=== PATIENT | female | born 2000 | race Caucasian/White ===

== ENCOUNTER 2025-03-11 14:29 | Emergency (ER) | payer OTHER, SELFPAY ==
[2025-03-11 14:35] VITALS: BP 132/70; PULSE 94; RESP 17; TEMP 36.6; O2SAT 99
--- OUTSIDE RECORDS SUMMARY | 2025-03-11 14:43 | XMS_ITS | Clinical Summary ---
Author Organization [facility] Kamiah Professional Maddock Address [address] [place] [id number] Care Team Providers Care Chemist Food Name Role Phone Sherita Sanchez NP Primary Care Provider [phone] Allergies No known active allergies Medications ibuprofen (ADVIL,MOTRIN) 200 mg tab/cap Take 200 mg by mouth every 6 (six) hours as needed for pain Active triamcinolone (NASACORT) 55 mcg nasal inhaler 2 sprays daily 05/26/2022 Active Active Problems No known active problems Immunizations Immunization Administration Dates Next Due DTaP 5 Pertussis 05/05/2005, 2,2000,2000 ,2000 HPV, Quadrivalent 05/20/2013,10/25/2011 Hep A, Pediatric 04/23/2008,01/16/2007 Hep B, Adolescent or Pediatric 02/05/2001,2000,2000 Hib (PRP-T) 07/02/2001,2000,2000 IPV 05/05/2005,09/24/2001,2000 ,2000 MMR 05/05/2005,07/02/2001 Meningococcal Conjugate (Menveo) 10/25/2011 Meningococcal MCV4P (Menactra) 01/10/2017 Pneumococcal Conjugate PCV 13 2000, 001,2000 Tdap 10/25/2011 Varicella 04/23/2008,05/14/2001 Surgical History Surgery Date Site/Laterality Comments TONSILLECTOMY Bilateral Medical History Medical History Date Comments Hx Other Medical tubes in ear Anxiety Depression Family History Medical History Relation Name Comments Heart disease Father christy lbake Heart disease Maternal Grandmother Hypertension Maternal Grandmother Stroke Maternal Grandmother Breast cancer Other Other Other Family history of heart problem; Relation Name Status Comments Father christy blake Maternal Grandmother Other Social History Tobacco Use Types Packs/Day Years Used Date Smoking Tobacco: Every Day Vaping Smokeless Tobacco: Never Tobacco Cessation:Ready to Q uit: Not Asked; Counseling Given: Not Answered Alcohol Use Standard Drinks/Week Comments No 0 (1 standard drink = 0.6 oz pur e alcohol) PHQ-2 Answer Date Recorded PHQ-2 Total Score (If total score is 3 or more points, staff should administer the PHQ-9) 2 06/14/2022 Comments No Sex and Gender Information Value Date Recorded Sex Assigned at Not on file Legal Sex Female 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 Gender Identity Not on file Sexual Orientation Not on file Last Filed Vital Signs Vital Sign Reading Time Taken Comments Blood Pressure 112/58 10/18/2023 9:20 AM CDT Pulse 85 10/18/2023 9:20 AM CDT Temperature 36.9 C (98.4 F) 10/18/2023 9:20 AM CDT Respiratory Rate 18 10/18/2023 9:20 AM CDT Oxygen Saturation 96% 10/18/2023 9:20 AM CDT Inhaled Oxygen Concentration - - Weight 54.4 kg (120 lb) 10/18/2023 9:20 AM CDT Height 157.5 cm (5' 2) 10/18/2023 9:20 AM CDT Body Mass Index 21.95 10/18/2023 9:20 AM CDT Plan of Treatment Health Maintenance Due Date Last Done Comments Cervical Cancer Screening 2000 Chlamydia and Gonorrhea (GC/ CT) Screening 2000 Hepatitis C Screening 2000 Pneumococcal vaccine <65 (1 of 1 - PPSV23, PCV20, or PCV21) 2006 2000, 2000, 2000 Regular Well Visit/Exam 18-64 2018 DTaP/Tdap/Td Vaccine (7 - Td or Tdap) 10/24/2021 10/25/2011, 05/05/2005, 07/02/2001, Additional history exists Depression Screening 06/15/2023 06/14/2022, 06/15/19 23 Influenza Vaccine (#1) 2024 Hepatitis B Screening Completed 02/05/2001 , 2000, 2000 Varicella Vaccines Completed 04/23/2008, 05/14/2001 HPV Vaccines Completed 05/20/2013, 10/25/2011 [facility] Care Teams Chemist Food Relationship Specialty Start Date End Date Sherita Sanchez NP [address] [facility] [address] [place] [address] PCP - General Family Medicine 06/14/22
--- OUTSIDE RECORDS SUMMARY | 2025-03-11 14:43 | XMS_ITS | Clinical Summary ---
Author Organization [facility] Address [address] [place] [address] Phone Care Team Providers Care Permit Technician Name Role Phone Provider, None Primary Care Provider Unavailabl e Allergies No known active allergies Medications No known medications Social History Tobacco Use Types Packs/Day Years Used Date Smoking Tobacco: Never Passive Smoke Exposure: Never Smokeless Tobacco: Never Tobacco Cessation:Counseling Given: Not Answered Alcohol Use Standard Drinks/Week Comments Yes 0 (1 standard drink = 0.6 oz pur e alcohol) socially Comments No Sex and Gender Information Value Date Recorded Sex Assigned at Not on file Legal Sex Female 2:32 PM ENGLISH LECTURER Gender Identity Not on file Sexual Orientation Not on file Last Filed Vital Signs Vital Sign Reading Time Taken Comments Blood Pressure 116/68 04/23/2022 5:33 PM ENGLISH LECTURER Pulse 99 04/23/2022 4:30 PM ENGLISH LECTURER Temperature 36.1 C (96.9 F) 04/23/2022 2:50 PM ENGLISH LECTURER Respiratory Rate 18 04/23/2022 5:33 PM ENGLISH LECTURER Oxygen Saturation 99% 04/23/2022 5:33 PM ENGLISH LECTURER Inhaled Oxygen Concentration - - Weight 54.4 kg (120 lb) 04/23/2022 2:50 PM ENGLISH LECTURER Height 167.6 cm (5' 6) 04/23/2022 2:50 PM ENGLISH LECTURER Body Mass Index 19.37 04/23/2022 2:50 PM ENGLISH LECTURER Plan of Treatment Health Maintenance Due Date Last Done Comments Hepatitis C Virus (HCV) Screening 2000 Influenza Immunization (#1) 2024 SARS-COV-2 Immunization (2024- season) 2024 Respiratory Syncytial Virus (RSV) Immunization (Adult) (1 - 1-dose 75+ series) 2075 Pneumococcal Immunization Combined Aged Out 2000, 2000, 2000 No longer eligible based on patient's age to complete this topic Hepatitis B Immunization Completed 001, 2000, 2000 Varicella Immunization Completed 04/23/2008, 2001 DTaP/Tdap/Td Immunization Discontinued 2011, 05/05/2005, 07/02/2001, Additional history exists TdaP Immunization Completed 10/25/2011 Human Papillomavirus (HPV) Immunization Completed 05/20/2013, 10/25/2011 Meningococcal Immunization (ACWY) Completed 01/10/2017, 10/25/2011 Rotavirus Immunization Aged Out No lo nger eligible based on patient's age to complete this topic Insurance [employer] Care Teams Permit Technician Relationship Specialty Start Date End Date Provider, None [place] PCP - General 04/23/22
--- OUTSIDE RECORDS SUMMARY | 2025-03-11 14:43 | XMS_ITS | Clinical Summary ---
Author Organization [facility] Address [address] [place] [address] Care Team Providers Care Keno Dealer Name Role Phone No, Pcp CREPING MACHINE OPERATOR Primary Care Provider Unavailabl e Social History Tobacco Use Types Packs/Day Years Used Date Smoking Tobacco: Never Assessed Comments Unknown Sex and Gender Information Value Date Recorded Sex Assigned at Not on file Legal Sex Female 1:00 PM EDT Gender Identity Not on file Sexual Orientation Not on file Plan of Treatment Not on file Medical Devices Not on file Care Teams Keno Dealer Relationship Specialty Start Date End Date No, Pcp, CREPING MACHINE OPERATOR N/A Do not use PCP - General Family Medicine 12/20/19
[2025-03-11 17:17] VITALS: BP 111/61; PULSE 98; RESP 18; TEMP 36.4; O2SAT 100
--- NOTE | 2025-03-11 17:22 | ED.SOB ---
HPI - SOB/Dyspnea General Chief Complaint: Shortness of Breath/Dyspnea <DELFIN Oropeza Last Filed: 03/11/25 17:31> Stated Complaint: sob lightheaded sent by obgyn <DELFIN Oropeza Last Filed: 03/11/25 17:31> Time Seen by Provider: 03/11/25 17:22 <DELFIN Oropeza Last Filed: 03/11/25 17:31> Focused HPI: Patient is a 24 y/o female who presents to the ED with c/o SOB/lightheadedness. Patient reports feeling lightheaded today. Worse with ambulation. Feels faint/weak, like she is going to pass out. Also reports CARR and increased SOB today. Has had some SOB with thus far, but states today was worse. Worse with exertion/walking up stairs in her house. Has been eating/drinking normally. Denies morning sickness, but has had some nausea today. Denies cough, congestion, rhinorrhea, fevers Patient is currently 12.5 weeks gestation. . Sees Dr. Prater at [facility]. Has had confirmed IUP. Had an appointment yesterday and had blood work drawn. Denies abd pain/vaginal bleeding. GENERAL: Well-appearing, well-nourished, and in no acute distress. HEAD: Normocephalic, atraumatic. CHEST: Clear to auscultation. ?No respiratory distress. HEART: Regular rate and rhythm.? NEURO: ?Alert and oriented x3. Patient screened in triage and initial orders placed.? ?Additional care and disposition to be based upon?diagnostic testing and treatment. <DELFIN Oropeza Last Filed: 03/11/25 17:31> Source: patient <DELFIN Oropeza Last Filed: 03/11/25 17:31> Mode of arrival: ambulatory <DELFIN Oropeza Last Filed: 03/11/25 17:31> Limitations: no limitations <DELFIN Oroepza Last Filed: 03/11/25 17:31> History of Present Illness HPI Narrative: I agree with the above HPI. <Savanah Marcial APRN - Last Filed: 03/11/25 20:47> Related Data Allergies/Adverse Reactions: Allergies Allergy/AdvReac Type Severity Reaction Status Date / Time No Known Allergies Allergy Unverified 08/17/17 07:33 <Odilia New PA-C - Last Filed: 03/11/25 17:31> Review of Systems Review of Systems: All systems reviewed & are unremarkable except as noted in HPI and below <Savanah Marcial APRN - Last Filed: 03/11/25 20:47> PMFSH Past Medical History Medical History: Medical History Allergies <Odilia New PA-C - Last Filed: 03/11/25 17:31> Surgical History Surgical History: Surgical History History of tonsillectomy <Odilia New PA-C - Last Filed: 03/11/25 17:31> Family History Family History: Family History Grandparent Cerebrovascular accident Father Heart disease <DELFIN Oropeza Last Filed: 03/11/25 17:31> Exam Narrative: GENERAL: Well appearing, well-nourished, non-toxic, in no acute distress. HEAD: Normocephalic, atraumatic. NECK: Supple. No adenopathy, no masses. RESPIRATORY: Airway patent, respirations nonlabored. Clear to auscultation bilaterally, no rales, rhonchi, wheezing. CARDIOVASCULAR: Regular rate and rhythm without murmurs, rubs, or gallops. Peripheral pulses 2+ and equal bilaterally. ABDOMINAL: Soft, nontender, nondistended, no hepatosplenomegaly. Normoactive BS. MUSCULOSKELETAL: Moves all extremities. Strength/ROM intact without gross deformities. SKIN: Warm, dry, normal color. No rashes. NEURO: A&O X3. Speech clear. Cranial nerves II-XII intact. No ataxic movements. PSYCHIATRIC: Appropriate mood and affect. Normal interaction. <Savanah Marcial, INJECTION MOLDING MACHINE SETTER - Last Filed: 03/11/25 20:47> Course Vital Signs Vital signs: Vital Signs Temperature 36.6 C 03/11/25 14:35 Pulse Rate 94 03/11/25 14:35 Respiratory Rate 17 03/11/25 14:35 Blood Pressure 132/70 03/11/25 14:35 Pulse Oximetry 99 03/11/25 14:35 Oxygen Delivery Room Air 03/11/25 14:35 Temperature 36.4 C 03/11/25 17:17 Pulse Rate 90 03/11/25 18:53 Respiratory Rate 16 03/11/25 18:53 Blood Pressure 113/67 03/11/25 18:53 Pulse Oximetry 100 03/11/25 18:53 Oxygen Delivery Room Air 03/11/25 14:35 <Odilia New PA-C - Last Filed: 03/11/25 17:31> Vital Signs Temperature 36.6 C 03/11/25 14:35 Pulse Rate 94 03/11/25 14:35 Respiratory Rate 17 03/11/25 14:35 Blood Pressure 132/70 03/11/25 14:35 Pulse Oximetry 99 03/11/25 14:35 Oxygen Delivery Room Air 03/11/25 14:35 Temperature 36.4 C 03/11/25 17:17 Pulse Rate 90 03/11/25 18:53 Respiratory Rate 16 03/11/25 18:53 Blood Pressure 113/67 03/11/25 18:53 Pulse Oximetry 100 03/11/25 18:53 Oxygen Delivery Room Air 03/11/25 14:35 <Savanah Marcial, INJECTION MOLDING MACHINE SETTER - Last Filed: 03/11/25 20:47> MDM MDM Narrative Medical decision making narrative: MSE by AR in triage <Odilia New PA-C - Last Filed: 03/11/25 17:31> MSE by RA in triage Focused HPI: Patient is a 24 y/o female who presents to the ED with c/o SOB/lightheadedness. Patient reports feeling lightheaded today. Worse with ambulation. Feels faint/weak, like she is going to pass out. Also reports CARR and increased SOB today. Has had some SOB with thus far, but states today was worse. Worse with exertion/walking up stairs in her house. Has been eating/drinking normally. Denies morning sickness, but has had some nausea today. Denies cough, congestion, rhinorrhea, fevers. Labs Ordered: COVID swab, CBC, CMP, UA, PTT, INR, D-dimer Imaging Ordered: Patient declined chest x-ray Medications Ordered: 1 L normal saline IV bolus, Keflex p.o. Results: Patient's urinalysis indicates she has urinary tract infection. Her white blood cell count is mildly elevated at 13.2. Diagnosis: Urinary tract infection, shortness of breath Consults: OBGYN, outpatient, Dr. Prater Patient Education/Shared MDM: Results of lab work and imaging shared with patient. She will be given her 1st dose of oral antibiotic here in the ER. Patient strongly advised to maintain hydration status upon discharge and follow-up with t her OBGYN as soon as possible. She will be discharged home with a prescription for Keflex. Strict return precautions provided. Patient verbalized understanding and is in agreement with plan. Vital signs stable at time of discharge. All questions answered. <Savanah Marcial APRN - Last Filed: 03/11/25 20:47> Differential Diagnosis Differential Diagnosis: Urinary tract infection, COVID, influenza, dehydration <Savanah Marcial APRN - Last Filed: 03/11/25 20:47> Lab Data [facility] Lab Attestation statement: I personally reviewed the patient's lab results. <Savanah Marcial APRN - Last Filed: 03/11/25 20:47> Result diagrams: 03/11/25 17:41 03/11/25 17:41 <Odilia New PA-C - Last Filed: 03/11/25 17:31> Labs: Lab Results 03/11/25 03/11/25 03/11/25 Range/Units 17:39 17:41 18:10 WBC 13.2 H (4.5-10.0) K/mm3 RBC 4.08 L (4.2-5.4) M/mm3 Hgb 13.0 (12.0-15.0) g/dL Hct 37.2 (37.0-47.0) % MCV 91.2 (80-100) fl MCH 31.9 (26-34) pg MCHC 34.9 (32-36) g/dl RDW 12.3 (11.5-14.5) % Plt Count 317 (150-375) k/mm3 MPV 9.3 (7.4-10.4) fl Immature Gran % (Auto) 0.5 (0-0.5) % Neut % (Auto) 68.2 (45.5-73.1) % Lymph % (Auto) 22.6 (18.3-44.2) % [place] % (Auto) 7.1 (2.6-8.5) % Eos % (Auto) 1.3 (0-4.4) % Baso % (Auto) 0.3 (0.2-1.2) % Lymph # (Auto) 2.99 (0.9-3.2) K/mm3 [place] # (Auto) 0.9 H (0.1-0.6) K/mm3 Eos # (Auto) 0.2 (0-0.3) K/mm3 Baso # (Auto) 0.0 (0.0-0.1) K/mm3 Abs Immat Gran (auto) 0.07 H (0.00-0.031) K/mm3 Absolute Neuts (auto) 9.0 H (1.3-6.7) K/mm3 Absolute Nucleated RBC 0.000 (0.0-0.012) K/mm3 Nucleated RBC % 0.0 (0.0-0.2) % PT 13.2 (11.1-14.7) Seconds INR 1.0 APTT 28.8 (22.3-36.8) Seconds D-Dimer < 0.27 (<0.48) ug/mL Sodium 135 L (137-145) mmol/L Potassium 3.8 (3.4-5.0) mmol/L Chloride 105 (98-107) mmol/L Carbon Dioxide 23 (22-30) mmol/L Anion Gap 7 (4-12) mmol/L BUN 9 (7-17) mg/dL Creatinine 0.49 L (0.7-1.0) mg/dL Estim Creat Clear Calc Not Reportable Estimated GFR > 60 (59 - ) Glucose 86 (65-110) mg/dL Calcium 9.5 (8.4-10.2) mg/dL Total Bilirubin 0.3 (0.2-1.3) mg/dL AST 30 (14-36) U/L ALT 19 (6-35) U/L Alkaline Phosphatase 51 (38-126) U/L Total Protein 7.2 (6.3-8.2) g/dL Albumin 4.2 (3.5-5.1) g/dL Urine Color Yellow (Yellow) Urine Appearance Cloudy H (Clear) Urine pH 6.5 (5.0-9.0) Ur Specific [place] 1.014 (1.001-1.035) Urine Protein Negative (Negative) mg/dL Urine Glucose (UA) Negative (Negative) mg/dL Urine Ketones Negative (Negative) mg/dL Ur Blood (Man) Negative (Negative) Urine Nitrate Negative (Negative) Urine Bilirubin Negative (Negative) Urine Urobilinogen 0.2 (<2.0) mg/dL Leukocyte Esterase Rfl 1+ H (Negative) AMOS/UL Urine RBC 0-2 (0-2) /hpf Urine WBC 11-20 H (0-3) /hpf Ur Squamous Epith Cells Moderate (Few) /hpf Urine Bacteria 1+ H /hpf Urine Casts 0-2 Influenza A (RT-PCR) (Negative) Influenza B (RT-PCR) (Negative) RSV (RT-PCR) (Negative) SARS-CoV-2 RNA (RT-PCR) (Negative) 03/11/25 Range/Units 18:56 WBC (4.5-10.0) K/mm3 RBC (4.2-5.4) M/mm3 Hgb (12.0-15.0) g/dL Hct (37.0-47.0) % MCV (80-100) fl MCH (26-34) pg MCHC (32-36) g/dl RDW (11.5-14.5) % Plt Count (150-375) k/mm3 MPV (7.4-10.4) fl Immature Gran % (Auto) (0-0.5) % Neut % (Auto) (45.5-73.1) % Lymph % (Auto) (18.3-44.2) % [place] % (Auto) (2.6-8.5) % Eos % (Auto) (0-4.4) % Baso % (Auto) (0.2-1.2) % Lymph # (Auto) (0.9-3.2) K/mm3 [place] # (Auto) (0.1-0.6) K/mm3 Eos # (Auto) (0-0.3) K/mm3 Baso # (Auto) (0.0-0.1) K/mm3 Abs Immat Gran (auto) (0.00-0.031) K/mm3 Absolute Neuts (auto) (1.3-6.7) K/mm3 Absolute Nucleated RBC (0.0-0.012) K/mm3 Nucleated RBC % (0.0-0.2) % PT (11.1-14.7) Seconds INR APTT (22.3-36.8) Seconds D-Dimer (<0.48) ug/mL Sodium (137-145) mmol/L Potassium (3.4-5.0) mmol/L Chloride (98-107) mmol/L Carbon Dioxide (22-30) mmol/L Anion Gap (4-12) mmol/L BUN (7-17) mg/dL Creatinine (0.7-1.0) mg/dL Estim Creat Clear Calc Estimated GFR (59 - ) Glucose (65-110) mg/dL Calcium (8.4-10.2) mg/dL Total Bilirubin (0.2-1.3) mg/dL AST (14-36) U/L ALT (6-35) U/L Alkaline Phosphatase (38-126) U/L Total Protein (6.3-8.2) g/dL Albumin (3.5-5.1) g/dL Urine Color (Yellow) Urine Appearance (Clear) Urine pH (5.0-9.0) Ur Specific [place] (1.001-1.035) Urine Protein (Negative) mg/dL Urine Glucose (UA) (Negative) mg/dL Urine Ketones (Negative) mg/dL Ur Blood (Man) (Negative) Urine Nitrate (Negative) Urine Bilirubin (Negative) Urine Urobilinogen (<2.0) mg/dL Leukocyte Esterase Rfl (Negative) AMOS/UL Urine RBC (0-2) /hpf Urine WBC (0-3) /hpf Ur Squamous Epith Cells (Few) /hpf Urine Bacteria /hpf Urine Casts Influenza A (RT-PCR) Negative (Negative) Influenza B (RT-PCR) Negative (Negative) RSV (RT-PCR) Negative (Negative) SARS-CoV-2 RNA (RT-PCR) Negative (Negative) <Odilia New PA-C - Last Filed: 03/11/25 17:31> Lab Results 03/11/25 03/11/25 03/11/25 Range/Units 17:39 17:41 18:10 WBC 13.2 H (4.5-10.0) K/mm3 RBC 4.08 L (4.2-5.4) M/mm3 Hgb 13.0 (12.0-15.0) g/dL Hct 37.2 (37.0-47.0) % MCV 91.2 (80-100) fl MCH 31.9 (26-34) pg MCHC 34.9 (32-36) g/dl RDW 12.3 (11.5-14.5) % Plt Count 317 (150-375) k/mm3 MPV 9.3 (7.4-10.4) fl Immature Gran % (Auto) 0.5 (0-0.5) % Neut % (Auto) 68.2 (45.5-73.1) % Lymph % (Auto) 22.6 (18.3-44.2) % [place] % (Auto) 7.1 (2.6-8.5) % Eos % (Auto) 1.3 (0-4.4) % Baso % (Auto) 0.3 (0.2-1.2) % Lymph # (Auto) 2.99 (0.9-3.2) K/mm3 [place] # (Auto) 0.9 H (0.1-0.6) K/mm3 Eos # (Auto) 0.2 (0-0.3) K/mm3 Baso # (Auto) 0.0 (0.0-0.1) K/mm3 Abs Immat Gran (auto) 0.07 H (0.00-0.031) K/mm3 Absolute Neuts (auto) 9.0 H (1.3-6.7) K/mm3 Absolute Nucleated RBC 0.000 (0.0-0.012) K/mm3 Nucleated RBC % 0.0 (0.0-0.2) % PT 13.2 (11.1-14.7) Seconds INR 1.0 APTT 28.8 (22.3-36.8) Seconds D-Dimer < 0.27 (<0.48) ug/mL Sodium 135 L (137-145) mmol/L Potassium 3.8 (3.4-5.0) mmol/L Chloride 105 (98-107) mmol/L Carbon Dioxide 23 (22-30) mmol/L Anion Gap 7 (4-12) mmol/L BUN 9 (7-17) mg/dL Creatinine 0.49 L (0.7-1.0) mg/dL Estim Creat Clear Calc Not Reportable Estimated GFR > 60 (59 - ) Glucose 86 (65-110) mg/dL Calcium 9.5 (8.4-10.2) mg/dL Total Bilirubin 0.3 (0.2-1.3) mg/dL AST 30 (14-36) U/L ALT 19 (6-35) U/L Alkaline Phosphatase 51 (38-126) U/L Total Protein 7.2 (6.3-8.2) g/dL Albumin 4.2 (3.5-5.1) g/dL Urine Color Yellow (Yellow) Urine Appearance Cloudy H (Clear) Urine pH 6.5 (5.0-9.0) Ur Specific [place] 1.014 (1.001-1.035) Urine Protein Negative (Negative) mg/dL Urine Glucose (UA) Negative (Negative) mg/dL Urine Ketones Negative (Negative) mg/dL Ur Blood (Man) Negative (Negative) Urine Nitrate Negative (Negative) Urine Bilirubin Negative (Negative) Urine Urobilinogen 0.2 (<2.0) mg/dL Leukocyte Esterase Rfl 1+ H (Negative) AMOS/UL Urine RBC 0-2 (0-2) /hpf Urine WBC 11-20 H (0-3) /hpf Ur Squamous Epith Cells Moderate (Few) /hpf Urine Bacteria 1+ H /hpf Urine Casts 0-2 Influenza A (RT-PCR) (Negative) Influenza B (RT-PCR) (Negative) RSV (RT-PCR) (Negative) SARS-CoV-2 RNA (RT-PCR) (Negative) 03/11/ Range/Units 18:56 WBC (4.5-10.0) K/mm3 RBC (4.2-5.4) M/mm3 Hgb (12.0-15.0) g/dL Hct (37.0-47.0) % MCV (80-100) fl MCH (26-34) pg MCHC (32-36) g/dl RDW (11.5-14.5) % Plt Count (150-375) k/mm3 MPV (7.4-10.4) fl Immature Gran % (Auto) (0-0.5) % Neut % (Auto) (45.5-73.1) % Lymph % (Auto) (18.3-44.2) % [place] % (Auto) (2.6-8.5) % Eos % (Auto) (0-4.4) % Baso % (Auto) (0.2-1.2) % Lymph # (Auto) (0.9-3.2) K/mm3 [place] # (Auto) (0.1-0.6) K/mm3 Eos # (Auto) (0-0.3) K/mm3 Baso # (Auto) (0.0-0.1) K/mm3 Abs Immat Gran (auto) (0.00-0.031) K/mm3 Absolute Neuts (auto) (1.3-6.7) K/mm3 Absolute Nucleated RBC (0.0-0.012) K/mm3 Nucleated RBC % (0.0-0.2) % PT (11.1-14.7) Seconds INR APTT (22.3-36.8) Seconds D-Dimer (<0.48) ug/mL Sodium (137-145) mmol/L Potassium (3.4-5.0) mmol/L Chloride (98-107) mmol/L Carbon Dioxide (22-30) mmol/L Anion Gap (4-12) mmol/L BUN (7-17) mg/dL Creatinine (0.7-1.0) mg/dL Estim Creat Clear Calc Estimated GFR (59 - ) Glucose (65-110) mg/dL Calcium (8.4-10.2) mg/dL Total Bilirubin (0.2-1.3) mg/dL AST (14-36) U/L ALT (6-35) U/L Alkaline Phosphatase (38-126) U/L Total Protein (6.3-8.2) g/dL Albumin (3.5-5.1) g/dL Urine Color (Yellow) Urine Appearance (Clear) Urine pH (5.0-9.0) Ur Specific [place] (1.001-1.035) Urine Protein (Negative) mg/dL Urine Glucose (UA) (Negative) mg/dL Urine Ketones (Negative) mg/dL Ur Blood (Man) (Negative) Urine Nitrate (Negative) Urine Bilirubin (Negative) Urine Urobilinogen (<2.0) mg/dL Leukocyte Esterase Rfl (Negative) AMOS/UL Urine RBC (0-2) /hpf Urine WBC (0-3) /hpf Ur Squamous Epith Cells (Few) /hpf Urine Bacteria /hpf Urine Casts Influenza A (RT-PCR) Negative (Negative) Influenza B (RT-PCR) Negative (Negative) RSV (RT-PCR) Negative (Negative) SARS-CoV-2 RNA (RT-PCR) Negative (Negative) <Savanah Marcial APRN - Last Filed: 03/11/25 20:47> Imaging Data My impression: Pt declined <Savanah Marcial APRN - Last Filed: 03/11/25 20:47> Discharge Plan Discharge Clinical Impression: Urinary tract infection affecting , Dehydration, mild, Dizziness, Shortness of breath <Odilia New PA-C - Last Filed: 03/11/25 17:31> Patient Disposition: Home <Odilia New PA-C - Last Filed: 03/11/25 17:31> Condition: Stable <DELFIN Oropeza Last Filed: 03/11/25 17:31> Instructions: Antibiotic Form, Urinary Tract Infection in (ED) <Odilia New PA-C - Last Filed: 03/11/25 17:31> Additional Instructions: Please return to the ER with any worsening symptoms. Follow-up with OBGYN as soon as possible for further evaluation. Please complete your full dose of antibiotics. You may take Tylenol as needed for pain control. <Odilia New PA-C - Last Filed: 03/11/25 17:31> Patient Language: Yoruba <EUGENE OropezaC - Last Filed: 03/11/25 17:31> Prescriptions: New cephalexin 500 mg capsule 500 mg PO Q8H 7 Days Qty: 21 0RF <Odilia New PA-C - Last Filed: 03/11/25 17:31> Follow-up/Referrals: Palmer Prater MD [Physician, [employer]] PHYSICIAN NOT ON STAFF,NONSTAFF [Primary Care Provider] <Odilia New PA-C - Last Filed: 03/11/25 17:31> Stand Alone Forms: Work/School Release IP <Odilia New PA-C - Last Filed: 03/11/25 17:31> Time of Disposition: 20:46 <Odilia New PA-C - Last Filed: 03/11/25 17:31> 20:46 <Savanah Marcial APRN - Last Filed: 03/11/25 20:47>
[2025-03-11 18:00] LABS: Hematocrit 37.2 % (37.0-47.0); Hemoglobin 13.0 g/dL (12.0-15.0); Immature Granulocyte Percent A 0.5 % (0-0.5); Lymphocytes Absolute Auto 2.99 K/mm3 (0.9-3.2); Mean Corpuscular HGB Conc 34.9 g/dl (32-36); Mean Corpuscular Hemoglobin 31.9 pg (26-34); Mean Corpuscular Volume 91.2 fl (80-100); Nucleated Red Blood Cells Absolute Auto 0.000 K/mm3 (0.0-0.012); Nucleated Red Blood Cells Perc 0.0 % (0.0-0.2); Platelet Count Result 317 k/mm3 (150-375); Red Blood Count 4.08 M/mm3 (4.2-5.4); White Blood Count 13.2 K/mm3 (4.5-10.0)
[2025-03-11 18:11] LABS: Alanine Aminotransferase 19 U/L (6-35); Albumin Level 4.2 g/dL (3.5-5.1); Alkaline Phosphatase 51 U/L (38-126); Anion Gap 7 mmol/L (4-12); Aspartate Amino Transferase 30 U/L (14-36); Bilirubin,Total 0.3 mg/dL (0.2-1.3); Blood Urea Nitrogen 9 mg/dL (7-17); Calcium 9.5 mg/dL (8.4-10.2); Carbon Dioxide 23 mmol/L (22-30); Chloride 105 mmol/L (98-107); Estimated Glomerular Filt Rate > 60; Glucose 86 mg/dL (65-110); Potassium 3.8 mmol/L (3.4-5.0); Sodium 135 mmol/L (137-145); Total Protein 7.2 g/dL (6.3-8.2)
[2025-03-11 18:12] LABS: Partial Thromboplastin Time 28.8 Seconds (22.3-36.8)
[2025-03-11 18:37] LABS: Add Urine Microscopic? YES; Appearance Urine Cloudy (Clear); Glucose Urine UA Negative (Negative); Leukocyte Esterase Ur 1+ LEU/UL (Negative); Nitrate Urine Negative (Negative); Non Pathogenic Casts 0-2; Specific Grav Ur 1.014 (1.001-1.035)
[2025-03-11] MEDS: SODIUM CHLORIDE 0.9% IV 1,000 ML 999 ML IV CONT (18:52)
[2025-03-11 18:53] VITALS: BP 113/67; PULSE 90; PULSE 96; RESP 16; O2SAT 100
[2025-03-11] MEDS: CEPHALEXIN 500 MG CAPSULE PO (19:12)
[2025-03-11 19:28] LABS: INR 1.0; Prothrombin Time 13.2 Seconds (11.1-14.7)
[2025-03-11 19:39] LABS: Influenza A QL RT-PCR Negative (Negative); Influenza B QL RT-PCR Negative (Negative); RSV RNA, RT-PCR Negative (Negative); SARS-CoV-2 RNA PCR Negative (Negative)
--- OUTSIDE RECORDS SUMMARY | 2025-03-11 20:10 | XMS_ITS | Continuity of Care Document ---
Author Organization [facility] [place] Address [address] [place] [address] Assessment No assessment recorded. Plan of Treatment Reminders Order Date Submit Date Provider Last Modified By Organization Details Last Modified Time Details Appointments OB ROUTINE 2025 08:30A M Gee ROTHMAN MD Not available Not available Not available OB ROUTINE 2025 08:30A M Patient Financial Coor Not available Not available Not available Lab None recorded . Referral None recorded . Procedures None recorded . Surgeries None recorded . Imaging US, obstetri c, nuchal transluc ency 2024 025 [email or web address] [place], [address], [place], [address], 03/10/2025 22:41:50 US, obstetri c, 1st trimeste r 2024 025 [email or web address] [place], [address], [place], [address], 03/10/2025 22:41:50 Medication Orders None recorded . Patient TargetsNo targets recorded. Patient InstructionsNo instructions recorded. Reason for Referral None Reported. Results Created Date Observation Date Name Description Value Unit Range Abnormal Flag Note LastModifiedBy Organization Detail LastModifiedTime 03/10/2003/10/2025 drug scree n, urine Amphetamines : negati ve Not Available [place] [address], [place], [address], 03/10/2025 12:07:53 03/10/20 25 03/10/2025 drug scree n, urine Cannabinoids : negati ve Not Available [place] [address], [place], [address], 03/10/2025 12:07:53 03/10/20 25 03/10/2025 drug scree n, urine Cocaine: negati ve Not Available [place] [address], [place], [address], 03/10/2025 12:07:53 03/10/20 25 03/10/2025 drug scree n, urine Opiates: negati ve Not Available [place] [address], [place], [address], 03/10/2025 12:07:53 03/10/20 25 03/10/2025 drug scree n, urine Phenocyclidi ne: negati ve Not Available [place] [address], [place], [address], 03/10/2025 12:07:53 03/10/20 25 03/10/2025 drug scree n, urine Barbiturates : negati ve Not Available [place] [address], [place], [address], 03/10/2025 12:07:53 03/10/20 25 03/10/2025 drug scree n, urine Benzodiazepi jennifer: negati ve Not Available [place] [address], [place], [address], 03/10/2025 12:07:53 03/10/20 25 03/10/2025 drug scree n, urine Ethanol: negati ve Not Available [place] [address], [place], [address], 03/10/2025 12:07:53 03/10/20 25 03/10/2025 drug scree n, urine Hallucinogen s: negati ve Not Available [place] [address], [place], [address], 03/10/2025 12:07:53 03/10/20 25 03/10/2025 drug scree n, urine Inhalants: negati ve Not Available [place] [address], [place], [address], 03/10/2025 12:07:53 03/10/20 25 03/10/2025 drug scree n, urine Anabolic Steroids: negati ve Not Available [place] [address], [place], [address], 03/10/2025 12:07:53 03/10/20 25 03/10/2025 US, obste tric, nucha l trans lucen cy No observ ation record ed. [email or web address] [place] [address], [place], [address], 03/10/2025 12:51:40 03/10/20 25 03/10/2025 US, obste tric, 1st trime ster No observ ation record ed. [email or web address] [place] [address], [place], [address], 03/10/2025 12:52:02 03/10/20 25 03/10/2025 US, obste tric, nucha l trans lucen cy No observ ation record ed. [email or web address] [address], [place], [address], 03/10/2025 23:29:12 Result Notes None recorded. Problems Name Problem SNOMED Code Status Onset Date Resolution Date Notes Provider Name and Address Organization Details Recorded Time [id number] Active 025 Ashley Tolentino [facility], [place] - [facility] 11:43:47 Problem Notes None recorded. Procedures Surgical History Date Name Laterality Status Provider Name and Address Organization Details Recorded Time 09/11/19 24 medical termination of completed [facility] 03/10/2025 11:43:12 10/12/19 21 medical termination of completed [facility] 03/10/2025 11:43:03 02/11/20 20 medical termination of completed [facility] 03/10/2025 11:42:46 08/29/19 19 Tonsillectomy completed Arcelia Hutson [facility] 02/14/2025 14:19:57 Imaging Results None recorded. Procedure Notes None recorded. Medical Equipment None Reported. Allergies No known drug allergies Medications Name Sig Start Date Stop Date Status Note LastModified by Organization Details LastModified Time fluticasone propionate 50 mcg/actuatio n nasal spray,suspen cheo SHAKE LIQUID AND USE 2 SPRAYS IN EACH NOSTRIL DAILY 02/14 completed Not Available Not Available Not Available nitrofuranto in monohydrate/ macrocrystal s 100 mg capsule TAKE 1 CAPSULE BY MOUTH TWICE DAILY FOR 5 DAYS 02/12 completed Not Available Not Available Not Available active Not Available Not Avai lable Not Available Vitals Date Recorded Body height Body mass index (BMI) Body weight Systolic And Diastolic Provider Name and Address Organization Details Last Updated DateTime 03/10/2025 157.48 cm 24.7 kg/m2 70963.97 g 123/76 mm[Hg] [facility] 03/10/2025 11:34:44 Social History Question Answer Notes LastModified by Organizat ion Details LastModified Time Tobacco Smoking Status Never Smoker Arcelia Hutson [facility] 02/14/2025 14:26:00 Do You Have An Advance Directive? No Information n ot available 02/14/2025 If You Are , What Was Your Level Of Alcohol Consumption Prior To ? None [email or web address] Information not available 02/14/2025 How Many Years Have You Consumed Alcohol? 4 [email or web address] Information not available 02/14/2025 Are You Blind Or Do You Have Difficulty Seeing? No [email or web address] Information n ot available 02/14/2025 What Is Your Level Of Caffeine Consumption? Occasional Information not available 02/14/2025 How Much Tobacco Do You Chew? None [email or web address] Information not available 02/14/2025 In The 14 Days Before Symptom Onset, Have You Had Close Contact With A Laboratory-confirm ed COVID-19 While That Case Was Ill? No [email or web address] Information n ot available 02/14/2025 In The 14 Days Before Symptom Onset, Have You Had Close Contact With A Person Who Is Under Investigation For COVID-19 While That Person Was Ill? No [email or web address] Information not available 02/14/2025 Have You Been To An Area Known To Be High Risk For COVID-19? No [email or web address] Information not available 02/14/2025 Are You Deaf Or Do You Have Serious Difficulty Hearing? No [email or web address] Information not available 02/14/2025 What Type Of Diet Are You Following? REGULAR [email or web address] Information n ot available 02/14/2025 What Is The Highest Grade Or Level Of School You Have Completed Or The Highest Degree You Have Received? [id number] Information not available 02/14/2025 Are There Any Guns Present In Your Home? No [email or web address] Information not available 02/14/2025 Do You Use Protection During Sex? No [email or web address] Information not available 02/14/2025 Do You Use Your Seat Belt Or Car Seat Routinely? Yes [email or web address] Information not available 02/14/2025 Are You Sexually Active? Yes [email or web address] Information not available 02/14/2025 Do You Have Smoke And Carbon Monoxide Detectors In Your Home? Yes Information not available 02/14/2025 How Much Tobacco Do You Smoke? No [email or web address] Information not available 02/14/2025 Do You Use Sunscreen Routinely? No [email or web address] Information not available 02/14/2025 Have You Used IV Drugs? No Information not available 02/14/2025 Do You Have Difficulty Walking Or Climbing Stairs? No Information not available 02/14/2025 Sex: Unknown Functional Status Question Answer Note LastModified by Organizat ion Details LastModified Time Do you use any illicit or recreational drugs? No [email or web address] Information not available 02/14/2025 What is your level of alcohol consumption? Moderate [email or web address] Information not available 02/14/2025 Are you currently employed? Yes Information not available 02/14/2025 Are you able to walk independently without assistance or assistive devices? YESWOREST [email or web address] Information not available 02/14/2025 Are you able to care for yourself independently? 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 No [email or web address] Information not available 02/14/2025 What is your exercise level? None [email or web address] Information not available 02/14/2025 Mental Status Question Answer Note LastModified by Organization D etails LastModified Time Do you feel stressed (tense, restless, nervous, or anxious, or unable to sleep at night)? [id number] [email or web address] Information not available 02/14/2025 Family History Relationship Description Onset Age of this Age Resolved Age Notes LastModified by Organization Details LastModified Time Father Heart disease 68 [email or web address] Not available 2024 14:19:44 Maternal Grandmother Cerebrovascu lar accident [email or web address] Not available 07/2024 14:25:50 Medical History Condition Response Urinary Tract Infection Y Kidney or Bladder Problems Y Depression/ depression Y Gynecological History Statement/Question Response Date of Last Mammogram Flow Heavy Date of LMP 12/13/2024 N Was last menstrual period normal Y STIs/STDs N Date of Last Colonoscopy None Desired Control Method None Abnormal Pap N On BCP's at Conception? N HPV Vaccine N Duration of Flow (days) 5 Current Control Method Are cycles usually normal Y Frequency of Cycle (Q days) 28 Sexually Active? Y Date of DEXA bone scan Age of first menstrual cycle 12 Date of Last Pap Smear Sexual Problems? N LMP Definite N Obstetrics History GPAL:G 4 P 0 0 3 0 Type Value Induced 3 Living 0 Total 4 Past Encounters Encounter ID Performer Location Encounter Start Date Encounter Closed Date Diagnosis/Indication Diagnosis SNOMED-CT Code Diagnosis ICD10 Code Diagnosis IMO Codes Diagnosis Note [id number] Palmer Rothman MD [place] [address],[facility] [place] [address] 02/14/2025 12:18:29 02/14/2025 13:32:25 [id number] Latricia Espinoza CNM [place] [address],[place] [address] 02/14/2025 12:26:06 02/14/2025 15:27:30 Amenorrhea 38498450 N91.2 [id number] +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 tylenol for back painreview ed usplan 12 week new ob and first lookeducat ion and precaution sf/u 3 weeks [id number] Palmer Rothman MD [place] [address],[place] [address] 03/10/2025 10:25:38 03/10/2025 11:16:19 screening 381417430 Z36.82 Z3A.12 [id number] Palmer Rothman MD [place] [address],[place] [address] 03/10/2025 10:26:04 03/10/2025 12:08:45 care status [id number] Z34.82 [id number] Health Concerns Section Related Observation LastModified by Organization Detai ls LastModified Time None Recorded Concern Status LastModified by Organization Details LastModified Time None Recorded Payers Encounter Date Sequence Insurance Name Policy Number Policy Elias Covered Member ID Elias Member ID Guarantor Name 03/10/2025 1 [employer] (POS II) Nakia Menjivar [id number] Nakia Menjivar OBGyn Episode Ob Episode Information Episode Created Date Number of Fetuses Patient Bloodtype Patient rh Status Prepregnancy Weight lbs Domestic Partner Domestic Partner Phone Father Name Typing Secretary Status 03/10/20 25 1 OPEN Fetus Data First Name Last Name Admitted to NICU Weight (g) Sex Living Outcome Pediatric Complications Fetus ID Race Codes Race Delivery Type [id number] Nabil Calculation Initial Nabil Date Initial Exam Date Initial Exam Provider Initial Ultrasound Date Last Menstrual Period Date Ultra Sound Weeks Gestation 03/10/2025 02/14/2025 12/13/2024 9 Eighteen To Twenty Week Nabil Update Ultra Sound Date Fundal Height At Umbil Quickening Date Ultra Sound Latest Weeks Gestation Final Nabil Confirmed By Final Nabil Confirmed Date Final Nabil Date Ultra Sound Latest Days Gestation 0 [email or web address] 03/10/2025 09/20/19 26 0 Pre- Flowsheet Flowsheet Date 03/10/2025 Leblanc Score Blood Edema Fundus Height Fundus Units Glucose Ketones Leukocytes Nitrite Labor Signs Protein Cervic Dilation Cervic Effacement Cervic Station Type Weight in lbs Pre/Post Dialysis Refused Weight 135.524862159924 BP Diastolic BP Location Tested BP Systolic BP Type 76 L arm 123 sitting Fetus Heart Rate Present Fetus Movement Comments this patient is a 24-year-ol d multiparous female at 12 weeks' gestation who presents for initial care. Her medical, surgical, obstetric history is unremarkable. She is vaccinated. She was given precautions recomendations for . We talked about vaccines in . Talked about care in detail. She is having genetic testing. She had a normal 12 week ultrasound. To begin routine care. Menstrual History Last Menstrual Date Menses Monthly On Bcp Conception Prior Menses Frequency Hcg Plus Date Menarche Onset Age 1012/13/2024 Delivery Information Delivery Date Delivery Type Labor Anesthesia Weeks Gestation Incision Type Labor Labor Length Hrs Delivered By Post Complications Tubal Sterilization Discharge Date Comments Discharge Information Feeding Method Contraceptive Method Maternal HG B and HCT Levels
--- OUTSIDE RECORDS SUMMARY | 2025-03-11 20:10 | XMS_ITS | Clinical Summary ---
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
--- OUTSIDE RECORDS SUMMARY | 2025-03-11 20:10 | XMS_ITS | Data Portability ---
Author Organization [facility] Address [address] [place] [address] [address] Assessment No assessment recorded. Plan of Treatment Reminders Order Date Submit Date Provider Last Modified By Organization Details Last Modified Time Details Appointments OB ROUTINE 2025 08:30A M Gee ROTHMAN MD Not available Not available Not available OB ROUTINE 2025 08:30A M Patient Financial Coor Not available Not available Not available Lab CT + NG + TV, RNA, unspecif ied specimen 2024 025 [facility] (Lab), [address], [place], [address], 03/10/2025 12:09:02 culture, urine 2024 025 [facility] (Lab), [address], [place], [address], 03/10/2025 12:09:02 drug screen, urine 2024 025 [email or web address] [place], [address], [place], [address], 03/10/2025 12:08:35 Referral None recorded . Procedures None recorded . Surgeries None recorded . Imaging US, obstetri c, nuchal transluc ency 2024 025 [email or web address] [place], [address], [place], [address], 03/10/2025 22:41:50 US, obstetri c, 1st trimeste r 2024 025 [email or web address] [place], [address], [place], [address], 03/10/2025 22:41:50 Medication Orders None recorded . Patient TargetsNo targets recorded. Patient InstructionsNo instructions recorded. Reason for Referral None Reported. Results Created Date Observation Date Name Description Value Unit Range Abnormal Flag Note LastModifiedBy Organization Detail LastModifiedTime 03/10/20 25 03/10/2025 drug scree n, urine Amphetamines : negati ve Not Available [place] [address], [place], [address], 03/10/2025 12:07:53 03/10/20 25 03/10/2025 drug scree n, urine Cannabinoids : negati ve Not Available [place] [address], [place], [address], 03/10/2025 12:07:53 03/10/20 25 03/10/2025 drug scree n, urine Cocaine: negati ve Not Available [place] [address], [place], [address], 03/10/2025 12:07:53 03/10/20 25 03/10/2025 drug scree n, urine Opiates: negati ve Not Available [place] [address], [place], [address], 03/10/2025 12:07:53 03/10/20 25 03/10/2025 drug scree n, urine Phenocyclidi ne: negati ve Not Available [place] [address], [place], [address], 03/10/2025 12:07:53 03/10/20 25 03/10/2025 drug scree n, urine Barbiturates : negati ve Not Available [place] [address], [place], [address], 03/10/2025 12:07:53 03/10/20 25 03/10/2025 drug scree n, urine Benzodiazepi jennifer: negati ve Not Available [place] [address], [place], [address], 03/10/2025 12:07:53 03/10/20 25 03/10/2025 drug scree n, urine Ethanol: negati ve Not Available [place] [address], [place], [address], 03/10/2025 12:07:53 03/10/20 25 03/10/2025 drug scree n, urine Hallucinogen s: negati ve Not Available [place] [address], [place], [address], 03/10/2025 12:07:53 03/10/20 25 03/10/2025 drug scree n, urine Inhalants: negati ve Not Available [place] [address], [place], [address], 03/10/2025 12:07:53 03/10/20 25 03/10/2025 drug scree n, urine Anabolic Steroids: negati ve Not Available [place] [address], [place], [address], 03/10/2025 12:07:53 02/15/20 25 02/14/2025 US, obste tric, 1st trime ster No observ ation record ed. [email or web address] [address], [place], [address], 02/17/2025 12:31:50 03/10/20 25 03/10/2025 US, obste tric, nucha l trans lucen cy No observ ation record ed. [email or web address] [place] [address], [place], [address], 03/10/2025 12:51:40 03/10/20 25 03/10/2025 US, obste tric, 1st trime ster No observ ation record ed. [email or web address] [place] [address], [place], [address], 03/10/2025 12:52:02 03/10/20 25 03/10/2025 US, obste tric, nucha l trans lucen cy No observ ation record ed. [email or web address] [address], [place], [address], 03/10/2025 23:29:12 Result Notes None recorded. Problems Name Problem SNOMED Code Status Onset Date Resolution Date Notes Provider Name and Address Organization Details Recorded Time 17221804 Active 025 Ashley Raj[facility] 11:43:47 Problem Notes None recorded. Procedures Surgical History Date Name Laterality Status Provider Name and Address Organization Details Recorded Time 09/11/19 24 medical termination of completed [facility] 03/10/2025 11:43:12 10/12/19 21 medical termination of completed [facility] 03/10/2025 11:43:03 02/11/20 20 medical termination of completed [facility] 03/10/2025 11:42:46 08/29/19 19 Tonsillectomy completed Arcelia Hutson [facility] 02/14/2025 14:19:57 Imaging Results None [...] and Address Organization Details Last Updated DateTime 02/14/2025 157.48 cm 23.6 kg/m2 85916.42 g 113/75 mm[Hg] Arcelia Pandyajose [facility] 02/14/2025 14:19:39 Date Recorded Body height Body mass index (BMI) Body weight Systolic And Diastolic Provider Name and Address Organization Details Last Updated DateTime 03/10/2025 157.48 cm 24.7 kg/m2 33977.97 g 123/76 mm[Hg] Ashley Rajan [facility] 03/10/2025 11:34:44 Social History Question Answer Notes LastModified by Organizat ion Details LastModified Time Tobacco Smoking Status Never Smoker Arcelia Pandyajose [facility] 02/14/2025 14:26:00 Do You Have An Advance Directive? No [email or web address] Information n ot available 02/14/2025 If You Are , What Was Your Level Of Alcohol Consumption Prior To ? None [email or web address] Information not available 02/14/2025 How Many Years Have You Consumed Alcohol? 4 [email or web address] Information not available 02/14/2025 Are You Blind Or Do You Have Difficulty Seeing? No [email or web address] Information n ot available 02/14/2025 What Is Your Level Of Caffeine Consumption? Occasional [email or web address] Information not available 02/14/2025 How Much Tobacco Do You Chew? None [email or web address] Information not available 02/14/2025 In The 14 Days Before Symptom Onset, Have You Had Close Contact With A Laboratory-confirm ed COVID-19 While That Case Was Ill? No [email or web address] Information n ot available 02/14/2025 In The 14 Days Before Symptom Onset, Have You Had Close Contact With A Person Who Is Under Investigation For COVID-19 While That Person Was Ill? No [email or web address] Information not available 02/14/2025 Have You Been To An Area Known To Be High Risk For COVID-19? No [email or web address] Information not available 02/14/2025 Are You Deaf Or Do You Have Serious Difficulty Hearing? No [email or web address] Information not available 02/14/2025 What Type Of Diet Are You Following? REGULAR [email or web address] Information n ot available 02/14/2025 What Is The Highest Grade Or Level Of School You Have Completed Or The Highest Degree You Have Received? [id number] Information not available 02/14/2025 Are There Any Guns Present In Your Home? No [email or web address] Information not available 02/14/2025 Do You Use Protection During Sex? No Information not available 02/14/2025 Do You Use Your Seat Belt Or Car Seat Routinely? Yes Information not available 02/14/2025 Are You Sexually Active? Yes [email or web address] Information not available 02/14/2025 Do You Have Smoke And Carbon Monoxide Detectors In Your Home? Yes [email or web address] Information not available 02/14/2025 How Much Tobacco Do You Smoke? No Information not available 02/14/2025 Do You Use Sunscreen Routinely? No Information not available 02/14/2025 Have You Used IV Drugs? No [email or web address] Information not available 02/14/2025 Do You Have Difficulty Walking Or Climbing Stairs? No Information not available 02/14/2025 Sex: Unknown Functional Status Question Answer Note LastModified by Organizat ion Details LastModified Time Do you use any illicit or recreational drugs? No [email or web address] Information not available 02/14/2025 What is your level of alcohol consumption? Moderate [email or web address] Information not available 02/14/2025 Are you currently employed? Yes [email or web address] Information not available 02/14/2025 Are you able to walk independently without assistance or assistive devices? YESWOREST [email or web address] Information not available 02/14/2025 Are you able to care for yourself independently? 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 No [email or web address] Information not available 02/14/2025 What is your exercise level? None [email or web address] Information not available 02/14/2025 Mental Status Question Answer Note LastModified by Organization D etails LastModified Time Do you feel stressed (tense, restless, nervous, or anxious, or unable to sleep at night)? [id number] Information not available 02/14/2025 Family History Relationship Description Onset Age of this Age Resolved Age Notes LastModified by Organization Details LastModified Time Father Heart disease 68 Not available 2024 14:19:44 Maternal Grandmother Cerebrovascu lar accident [email or web address] Not available 07/2024 14:25:50 Medical History Condition Response Kidney or Bladder Problems Y Urinary Tract Infection Y Depression/ depression Y Gynecological History Statement/Question [...] ICD10 Code Diagnosis IMO Codes Diagnosis Note [id number] Palmer Rothman MD [place] [address] [address] 02/14/2025 12:18:29 02/14/2025 13:32:25 [id number] Latricia Espinoza CNM [place] [address] [address] 02/14/2025 12:26:06 02/14/2025 15:27:30 Amenorrhea 96832581 N91.2 16943 +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 tylenol for back painreview ed usplan 12 week new ob and first lookeducat ion and precaution sf/u 3 weeks [id number] Palmer Rothman MD [place] [address] [address] 03/10/2025 10:25:38 03/10/2025 11:16:19 screening [id number] Z36.82 Z3A.12 [id number] Palmer Rothman MD [place] [address] [address] 03/10/2025 10:26:04 03/10/2025 12:08:45 care status [id number] Z34.82 [id number] Health Concerns Section Related Observation LastModified by Organization Detai ls LastModified Time None Recorded Concern Status LastModified by Organization Details LastModified Time None Recorded Advance Directives Directive N: Payers Insurance Date Sequence Insurance Name Policy Number Policy Elias Covered Member ID Elias Member ID Guarantor Name 03/09/2025 1 [employer] (POS II) Nakia Menjivar [id number] Nakia Menjivar Notes Date Note Type Note Provider Name and Address Organization Details Recorded Time 02/14/2025 text/html ROS as noted in the HPI regular cyclesamenorrhea+U PTexcited about pregnancymom at visit Latricia Espinoza CNM [address], [place], [address], [facility] 02/14/2025 15:18:52 OBGyn Episode Ob Episode Information Episode Created Date Number of Fetuses Patient Bloodtype Patient rh Status Prepregnancy Weight lbs Domestic Partner Domestic Partner Phone Father Name Drug Coordinator Status 03/10/20 25 1 CLOSED Fetus Data First Name Last Name Admitted to NICU Weight (g) Sex Living Outcome Pediatric Complications Fetus ID Race Codes Race Delivery Type , Induced [id number] Nabil Calculation Initial Nabil Date Initial Exam Date Initial Exam Provider Initial Ultrasound Date Last Menstrual Period Date Ultra Sound Weeks Gestation 0 Eighteen To Twenty Week Nabil Update Ultra Sound Date Fundal Height At Umbil Quickening Date Ultra Sound Latest Weeks Gestation Final Nabil Confirmed By Final Nabil Confirmed Date Final Nabil Date Ultra Sound Latest Days Gestation 0 0 Menstrual History Last Menstrual Date Menses Monthly On Bcp Conception Prior Menses Frequency Hcg Plus Date Menarche Onset Age Delivery Information Delivery Date Delivery Type Labor Anesthesia Weeks Gestation Incision Type Labor Labor Length Hrs Delivered By Post Complications Tubal Sterilization Discharge Date Comments 0 Discharge Information Feeding Method Contraceptive Method Maternal HG B and HCT Levels Ob Episode Information Episode Created Date Number of Fetuses Patient Bloodtype Patient rh Status Prepregnancy Weight lbs Domestic Partner Domestic Partner Phone Father Name Drug Coordinator Status 03/10/20 25 1 OPEN Fetus Data First Name Last Name Admitted to NICU Weight (g) Sex Living Outcome Pediatric Complications Fetus ID Race Codes Race Delivery Type [id number] Nabil Calculation Initial Nabil Date Initial Exam [...] Gestation 0 [email or web address] 03/10/2025 09/20/19 26 0 Pre-ced Flowsheet Flowsheet Date 03/10/2025 Leblanc Score Blood Edema Fundus Height Fundus Units Glucose Ketones Leukocytes Nitrite Labor Signs Protein Cervic Dilation Cervic Effacement Cervic Station Type Weight in lbs Pre/Post Dialysis Refused Weight 135.238596588077 BP Diastolic BP Location Tested BP Systolic [...] Method Maternal HG B and HCT Levels Ob Episode Information Episode Created Date Number of Fetuses Patient Bloodtype Patient rh Status Prepregnancy Weight lbs Domestic Partner Domestic Partner Phone Father Name Drug Coordinator Status 03/10/20 25 1 CLOSED Fetus Data First Name Last Name Admitted to NICU Weight (g) Sex Living Outcome Pediatric Complications Fetus ID Race Codes Race Delivery Type , Induced 34879 Nabil Calculation Initial Nabil Date Initial Exam Date Initial Exam Provider Initial Ultrasound Date Last Menstrual Period Date Ultra Sound Weeks Gestation 0 Eighteen To Twenty Week Nabil Update Ultra Sound Date Fundal Height At Umbil Quickening Date Ultra Sound Latest Weeks Gestation Final Nabil Confirmed By Final Nabil Confirmed Date Final Nabil Date Ultra Sound Latest Days Gestation 0 0 Menstrual History Last Menstrual Date Menses Monthly On Bcp Conception Prior Menses Frequency Hcg Plus Date Menarche Onset Age Delivery Information Delivery Date Delivery Type Labor Anesthesia Weeks Gestation Incision Type Labor Labor Length Hrs Delivered By Post Complications Tubal Sterilization Discharge Date Comments 1 Discharge Information Feeding Method Contraceptive Method Maternal HG B and HCT Levels Ob Episode Information Episode Created Date Number of Fetuses Patient Bloodtype Patient rh Status Prepregnancy Weight lbs Domestic Partner Domestic Partner Phone Father Name Drug Coordinator Status 03/10/20 25 1 CLOSED Fetus Data First Name Last Name Admitted to NICU Weight (g) Sex Living Outcome Pediatric Complications Fetus ID Race Codes Race Delivery Type , Induced [id number] Nabil Calculation Initial Nabil Date Initial Exam Date Initial Exam Provider Initial Ultrasound Date Last Menstrual Period Date Ultra Sound Weeks Gestation 0 Eighteen To Twenty Week Nabil Update Ultra Sound Date Fundal Height At Umbil Quickening Date Ultra Sound Latest Weeks Gestation Final Nabil Confirmed By Final Nabil Confirmed Date Final Nabil Date Ultra Sound Latest Days Gestation 0 0 Menstrual History Last Menstrual Date Menses Monthly On Bcp Conception Prior Menses Frequency Hcg Plus Date Menarche Onset Age Delivery Information Delivery Date Delivery Type Labor Anesthesia Weeks Gestation Incision Type Labor Labor Length Hrs Delivered By Post Complications Tubal Sterilization Discharge Date Comments 4 Discharge Information Feeding Method Contraceptive Method Maternal HG B and HCT Levels
--- OUTSIDE RECORDS SUMMARY | 2025-03-11 20:10 | XMS_ITS | Continuity of Care Document ---
Author Organization [facility] Address [address] [place] [address] Assessment No assessment recorded. Plan of Treatment [...] recorded . Surgeries None recorded . Imaging None recorded . Medication Orders None recorded . Patient TargetsNo targets recorded. Patient InstructionsNo instructions recorded. Reason for Referral None Reported. Results Created Date Observation Date Name Description Value Unit Range Abnormal Flag Note LastModifiedBy Organization Detail LastModifiedTime 03/10/20 25 03/10/2025 US, obste tric, nucha l trans lucen cy No observ ation record ed. [email or web address] [place] [address], [place], [address], 03/10/2025 12:51:40 03/10/20 25 03/10/2025 US, obste tric, 1st trime ster No observ ation record ed. [email or web address] [place] [address], [place], [address], 03/10/2025 12:52:02 03/10/20 25 03/10/2025 US, obste tric, nucha l trans lucen cy No observ ation record ed. [email or web address] [address], [place], [address], 03/10/2025 23:29:12 Result Notes None recorded. Problems Name Problem SNOMED Code Status Onset Date Resolution Date Notes Provider Name and Address Organization Details Recorded Time 90699424 Active 025 [facility] 11:43:47 Problem Notes None recorded. Procedures Surgical History Date Name Laterality Status Provider Name and Address Organization Details Recorded Time 09/11/19 24 medical termination of completed [facility] 03/10/2025 11:43:12 10/12/19 21 medical termination of completed [facility] 03/10/2025 11:43:03 02/11/20 20 medical termination of completed [facility] 03/10/2025 11:42:46 08/29/19 19 Tonsillectomy completed [facility] 02/14/2025 14:19:57 Imaging Results None recorded. [...] Updated DateTime 02/14/2025 157.48 cm 23.6 kg/m2 89705.42 g 113/75 mm[Hg] [facility] 02/14/2025 14:19:39 Social History Question Answer Notes LastModified by Organizat ion Details LastModified Time Tobacco Smoking Status Never Smoker Arcelia Hutson [facility], [facility] 02/14/2025 14:26:00 Do You Have An Advance Directive? No [email or web address] Information n ot available 02/14/2025 If You Are , What Was Your Level Of Alcohol Consumption Prior To ? None [email or web address] Information not available 02/14/2025 How Many Years Have You Consumed Alcohol? 4 [email or web address] Information not available 02/14/2025 Are You Blind Or Do You Have Difficulty Seeing? No [email or web address] Information n ot available 02/14/2025 What Is Your Level Of Caffeine Consumption? Occasional [email or web address] Information not available 02/14/2025 How Much Tobacco Do You Chew? None [email or web address] Information not available 02/14/2025 In The 14 Days Before Symptom Onset, Have You Had Close Contact With A Laboratory-confirm ed COVID-19 While That Case Was Ill? No [email or web address] Information n ot available 02/14/2025 In The 14 Days Before Symptom Onset, Have You Had Close Contact With A Person Who Is Under Investigation For COVID-19 While That Person Was Ill? No [email or web address] Information not available 02/14/2025 Have You Been To An Area Known To Be High Risk For COVID-19? No [email or web address] Information not available 02/14/2025 Are You Deaf Or Do You Have Serious Difficulty Hearing? No Information not available 02/14/2025 What Type Of Diet Are You Following? REGULAR [email or web address] Information n ot available 02/14/2025 What Is The Highest Grade Or Level Of School You Have Completed Or The Highest Degree You Have Received? [id number] [email or web address] Information not available 02/14/2025 Are There Any Guns Present In Your Home? No [email or web address] Information not available 02/14/2025 Do You Use Protection During Sex? No [email or web address] Information not available 02/14/2025 Do You Use Your Seat Belt Or Car Seat Routinely? Yes [email or web address] Information not available 02/14/2025 Are You Sexually Active? Yes [email or web address] Information not available 02/14/2025 Do You Have Smoke And Carbon Monoxide Detectors In Your Home? Yes Information not available 02/14/2025 How Much Tobacco Do You Smoke? No [email or web address] Information not available 02/14/2025 Do You Use Sunscreen Routinely? No [email or web address] Information not available 02/14/2025 Have You Used IV Drugs? No [email or web address] Information not available 02/14/2025 Do You Have Difficulty Walking Or Climbing Stairs? No [email or web address] Information not available 02/14/2025 Sex: Unknown Functional Status Question Answer Note LastModified by Organizat ion Details LastModified Time Do you use any illicit or recreational drugs? No [email or web address] Information not available 02/14/2025 What is your level of alcohol consumption? Moderate Information not available 02/14/2025 Are you currently employed? Yes [email or web address] Information not available 02/14/2025 Are you able to walk independently without assistance or assistive devices? YESWOREST [email or web address] Information not available 02/14/2025 Are you able to care for yourself independently? 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 No [email or web address] Information not available 02/14/2025 What is your exercise level? None Information not available 02/14/2025 Mental Status Question Answer Note LastModified by Organization D etails LastModified Time Do you feel stressed (tense, restless, nervous, or anxious, or unable to sleep at night)? [id number] Information not available 02/14/2025 Family History Relationship Description Onset Age of this Age Resolved Age Notes LastModified by Organization Details LastModified Time Father Heart disease 68 [email or web address] Not available 2024 14:19:44 Maternal Grandmother Cerebrovascu lar accident [email or web address] Not available 07/2024 14:25:50 Medical History Condition [...] ICD10 Code Diagnosis IMO Codes Diagnosis Note [id number] Palmer Rothman MD [place] [address] [address] 02/14/2025 12:18:29 02/14/2025 13:32:25 [id number] [facility] [address] [address] 02/14/2025 12:26:06 02/14/2025 15:27:30 Amenorrhea [id number] N91.2 29555 +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 tylenol for back painreview ed usplan 12 week new ob and first lookeducat ion and precaution sf/u 3 weeks Health Concerns Section Related Observation LastModified by Organization Detai ls LastModified Time None Recorded Concern Status LastModified by Organization Details LastModified Time None Recorded Payers Encounter Date Sequence Insurance Name Policy Number Policy Elias Covered Member ID Elias Member ID Guarantor Name 02/14/2025 1 [employer] (POS II) Nakia Menjivar [id number] Nakia Menjivar OBGyn Episode Ob Episode Information Episode Created Date Number of Fetuses Patient Bloodtype Patient rh Status Prepregnancy Weight lbs Domestic Partner Domestic Partner Phone Father Name City Manager Status 03/10/20 25 1 OPEN Fetus Data First Name Last Name Admitted to NICU Weight (g) Sex Living Outcome Pediatric Complications Fetus ID Race Codes Race Delivery Type 52781 Nabil Calculation Initial Nabil Date Initial Exam [...] Weight in lbs Pre/Post Dialysis Refused Weight 135.315283669769 BP Diastolic BP Location Tested BP Systolic [...]
--- OUTSIDE RECORDS SUMMARY | 2025-03-11 20:10 | XMS_ITS | Continuity of Care Document ---
Author Organization [facility] Address [address] [place] [address] [address] Assessment No assessment recorded. Plan of Treatment Reminders Order Date Submit Date Provider Last Modified By Organization Details Last Modified Time Details Appointments OB ROUTINE 2025 08:30A M Gee ROTHMAN MD Not available Not available Not available OB ROUTINE 2025 08:30A M Patient Financial Coor Not available Not available Not available Lab CT + NG + TV, RNA, unspecif ied specimen 2024 025 [facility] (Lab), [address] [facility], [place], [address], 03/10/2025 12:09:02 culture, urine 2024 025 [facility] (Lab), [address] [facility] [address], [place], [address], 03/10/2025 12:09:02 drug screen, urine [address], [address], [address], [place], [address], 03/10/2025 12:08:35 Referral None recorded . Procedures [...] urine Amphetamines : negati ve Not Available [facility] [address], [place], [address], 03/10/2025 12:07:53 03/10/20 25 03/10/2025 drug scree n, urine Cannabinoids : negati ve Not Available [place] [address], [place], [address], 03/10/2025 12:07:53 03/10/20 25 03/10/2025 drug scree n, urine Cocaine: negati ve Not Available [facility] [address], [place], [address], 03/10/2025 12:07:53 03/10/20 25 03/10/2025 drug scree n, urine Opiates: negati ve Not Available [facility] [address], [place], [address], 03/10/2025 12:07:53 03/10/20 25 03/10/2025 drug scree n, urine Phenocyclidi ne: negati ve Not Available [facility] [address], [place], [address], 03/10/2025 12:07:53 03/10/20 25 03/10/2025 drug scree n, urine Barbiturates : negati ve Not Available [facility] [address], [place], [address], 03/10/2025 12:07:53 03/10/20 25 03/10/2025 drug scree n, urine Benzodiazepi jennifer: negati ve Not Available [facility] [address], [place], [address], 03/10/2025 12:07:53 03/10/20 25 03/10/2025 drug scree n, urine Ethanol: negati ve Not Available [facility] [address], [place], [address], 03/10/2025 12:07:53 03/10/20 25 03/10/2025 drug scree n, urine Hallucinogen s: negati ve Not Available [facility] [address], [place], [address], 03/10/2025 12:07:53 03/10/20 25 03/10/2025 drug scree n, urine Inhalants: negati ve Not Available [facility] [address], [place], [address], 03/10/2025 12:07:53 03/10/20 25 03/10/2025 drug scree n, urine Anabolic Steroids: negati ve Not Available [facility] [address], [place], [address], 03/10/2025 12:07:53 03/10/20 25 03/10/2025 US, obste tric, nucha l trans lucen cy No observ ation record ed. [email or web address] [facility] [address], [place], [address], 03/10/2025 12:51:40 03/10/20 25 03/10/2025 US, obste tric, 1st trime ster No observ ation record ed. [email or web address] [facility] [address], [place], [address], 03/10/2025 12:52:02 03/10/20 25 03/10/2025 US, obste tric, nucha l trans lucen cy No observ ation record ed. [email or web address] [facility] [address], [place], [address], 03/10/2025 23:29:12 Result Notes None recorded. Problems Name Problem SNOMED Code Status Onset Date Resolution Date Notes Provider Name and Address Organization Details Recorded Time 91834627 Active [address] [facility] 11:43:47 Problem Notes None recorded. Procedures Surgical History Date Name Laterality Status Provider Name and Address Organization Details Recorded Time 09/11/19 24 medical termination of completed [facility] 03/10/2025 11:43:12 10/12/19 21 medical termination of completed [facility] 03/10/2025 11:43:03 02/11/20 20 medical termination of completed [facility] 03/10/2025 11:42:46 08/29/19 19 Tonsillectomy completed [facility] 02/14/2025 14:19:57 Imaging Results None recorded. [...] Updated DateTime 03/10/2025 157.48 cm 24.7 kg/m2 43306.97 g 123/76 mm[Hg] [facility] 03/10/2025 11:34:44 Social History Question Answer Notes LastModified by Organizat ion Details LastModified Time Tobacco Smoking Status Never Smoker Arcelia Hutson [facility] 02/14/2025 14:26:00 Do You Have An Advance Directive? No [email or web address] Information n ot available 02/14/2025 If You Are , What Was Your Level Of Alcohol Consumption Prior To ? None Information not available 02/14/2025 How Many Years Have You Consumed Alcohol? 4 [email or web address] Information not available 02/14/2025 Are You Blind Or Do You Have Difficulty Seeing? No Information n ot available 02/14/2025 What Is Your Level Of Caffeine Consumption? Occasional [email or web address] Information not available 02/14/2025 How Much Tobacco Do You Chew? None [email or web address] Information not available 02/14/2025 In The 14 Days Before Symptom Onset, Have You Had Close Contact With A Laboratory-confirm ed COVID-19 While That Case Was Ill? No [email or web address] Information n ot available 02/14/2025 In The 14 Days Before Symptom Onset, Have You Had Close Contact With A Person Who Is Under Investigation For COVID-19 While That Person Was Ill? No [email or web address] Information not available 02/14/2025 Have You Been To An Area Known To Be High Risk For COVID-19? No [email or web address] Information not available 02/14/2025 Are You Deaf Or Do You Have Serious Difficulty Hearing? No [email or web address] Information not available 02/14/2025 What Type Of Diet Are You Following? REGULAR Information n ot available 02/14/2025 What Is The Highest Grade Or Level Of School You Have Completed Or The Highest Degree You Have Received? [id number] [email or web address] Information not available 02/14/2025 Are There Any Guns Present In Your Home? No [email or web address] Information not available 02/14/2025 Do You Use Protection During Sex? No Information not available 02/14/2025 Do You Use Your Seat Belt Or Car Seat Routinely? Yes Information not available 02/14/2025 Are You Sexually Active? Yes Information not available 02/14/2025 Do You Have Smoke And Carbon Monoxide Detectors In Your Home? Yes [email or web address] Information not available 02/14/2025 How Much Tobacco Do You Smoke? No [email or web address] Information not available 02/14/2025 Do You Use Sunscreen Routinely? No [email or web address] Information not available 02/14/2025 Have You Used IV Drugs? No [email or web address] Information not available 02/14/2025 Do You Have Difficulty Walking Or Climbing Stairs? No [email or web address] Information not available 02/14/2025 Sex: Unknown Functional Status Question Answer Note LastModified by Organizat ion Details LastModified Time Do you use any illicit or recreational drugs? No Information not available 02/14/2025 What is your level of alcohol consumption? Moderate Information not available 02/14/2025 Are you currently employed? Yes Information not available 02/14/2025 Are you able to walk independently without assistance or assistive devices? YESWOREST [email or web address] Information not available 02/14/2025 Are you able to care for yourself independently? 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 No [email or web address] Information not available 02/14/2025 What is your exercise level? None Information not available 02/14/2025 Mental Status Question Answer Note LastModified by Organization D etails LastModified Time Do you feel stressed (tense, restless, nervous, or anxious, or unable to sleep at night)? [id number] Information not available 02/14/2025 Family History Relationship Description Onset Age of this Age Resolved Age Notes LastModified by Organization Details LastModified Time Father Heart disease 68 [email or web address] Not available 2024 14:19:44 Maternal Grandmother Cerebrovascu lar accident [email or web address] Not available 07/2024 14:25:50 Medical History Condition [...] ICD10 Code Diagnosis IMO Codes Diagnosis Note [id number] Palmer Rothman MD [facility] [address] [address] 02/14/2025 12:18:29 02/14/2025 13:32:25 [id number] Latricia Espinoza [facility] [address],[place] [address] 02/14/2025 12:26:06 02/14/2025 15:27:30 Amenorrhea 08053765 N91.2 78483 +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 tylenol for back painreview ed usplan 12 week new ob and first lookeducat ion and precaution sf/u 3 weeks [id number] Palmer Rothman MD [facility] [address],[place] [address] 03/10/2025 10:25:38 03/10/2025 11:16:19 screening [id number] Z36.82 Z3A.12 [id number] Palmer Rothman MD [place] [address],[place] [address] 03/10/2025 10:26:04 03/10/2025 12:08:45 care status [id number] Z34.82 [id number] Health Concerns Section Related Observation LastModified by Organization Detai ls LastModified Time None Recorded Concern Status LastModified by Organization Details LastModified Time None Recorded Payers Encounter Date Sequence Insurance Name Policy Number Policy Elias Covered Member ID Elias Member ID Guarantor Name 03/10/2025 1 [employer] (POS II) Nakia Menjivar [id number] Nakia Menjivar OBGyn Episode Ob Episode Information Episode Created Date Number of Fetuses Patient Bloodtype Patient rh Status Prepregnancy Weight lbs Domestic Partner Domestic Partner Phone Father Name Water Attendant Status 03/10/20 25 1 OPEN Fetus Data First Name Last Name Admitted to NICU Weight (g) Sex Living Outcome Pediatric Complications Fetus ID Race Codes Race Delivery Type 72178 Nabil Calculation Initial Nabil Date Initial Exam [...] Weight in lbs Pre/Post Dialysis Refused Weight 135.664006470671 BP Diastolic BP Location Tested BP Systolic [...]
--- OUTSIDE RECORDS SUMMARY | 2025-03-11 20:10 | XMS_ITS | Continuity of Care Document ---
Author Organization [facility] Address [address] [place] [address] Assessment No assessment recorded. Plan of Treatment [...] cy No observ ation record ed. [email or web address] [facility] [address], [place], [address], 03/10/2025 12:51:40 03/10/20 25 03/10/2025 US, obste tric, 1st trime ster No observ ation record ed. [email or web address] [facility] [address], [place], [address], 03/10/2025 12:52:02 03/10/20 25 03/10/2025 US, obste tric, nucha l trans lucen cy No observ ation record ed. [email or web address] Mi[place] [address], [place], [address], 03/10/2025 23:29:12 Result Notes None recorded. Problems Name Problem SNOMED Code Status Onset Date Resolution Date Notes Provider Name and Address Organization Details Recorded Time 11985987 Active 025 [facility] 11:43:47 Problem Notes None recorded. Procedures Surgical History Date Name Laterality Status Provider Name and Address Organization Details Recorded Time 09/11/19 24 medical termination of completed [facility] 03/10/2025 11:43:12 10/12/19 21 medical termination of completed [facility] 03/10/2025 11:43:03 02/11/20 20 medical termination of completed [facility] 03/10/2025 11:42:46 08/29/19 [address] [facility] 02/14/2025 14:19:57 Imaging Results [...] Updated DateTime 02/14/2025 157.48 cm 23.6 kg/m2 51167.42 g 113/75 mm[Hg] [facility] 02/14/2025 14:19:39 Social History Question Answer Notes LastModified by Organizat ion Details LastModified Time Tobacco Smoking Status Never Smoker Arcelia Hutson [facility] 02/14/2025 14:26:00 Do You Have An Advance Directive? No Information n ot available 02/14/2025 If You Are , What Was Your Level Of Alcohol Consumption Prior To ? None [email or web address] Information not available 02/14/2025 How Many Years Have You Consumed Alcohol? 4 [email or web address] Information not available 02/14/2025 Are You Blind Or Do You Have Difficulty Seeing? No [email or web address] Information n ot available 02/14/2025 What Is Your Level Of Caffeine Consumption? Occasional Information not available 02/14/2025 How Much Tobacco Do You Chew? None [email or web address] Information not available 02/14/2025 In The 14 Days Before Symptom Onset, Have You Had Close Contact With A Laboratory-confirm ed COVID-19 While That Case Was Ill? No [email or web address] Information n ot available 02/14/2025 In The 14 Days Before Symptom Onset, Have You Had Close Contact With A Person Who Is Under Investigation For COVID-19 While That Person Was Ill? No [email or web address] Information not available 02/14/2025 Have You Been To An Area Known To Be High Risk For COVID-19? No [email or web address] Information not available 02/14/2025 Are You Deaf Or Do You Have Serious Difficulty Hearing? No [email or web address] Information not available 02/14/2025 What Type Of Diet Are You Following? REGULAR Information n ot available 02/14/2025 What Is The Highest Grade Or Level Of School You Have Completed Or The Highest Degree You Have Received? [id number] [email or web address] Information not available 02/14/2025 Are There Any Guns Present In Your Home? No [email or web address] Information not available 02/14/2025 Do You Use Protection During Sex? No [email or web address] Information not available 02/14/2025 Do You Use Your Seat Belt Or Car Seat Routinely? Yes [email or web address] Information not available 02/14/2025 Are You Sexually Active? Yes [email or web address] Information not available 02/14/2025 Do You Have Smoke And Carbon Monoxide Detectors In Your Home? Yes [email or web address] Information not available 02/14/2025 How Much Tobacco Do You Smoke? No [email or web address] Information not available 02/14/2025 Do You Use Sunscreen Routinely? No [email or web address] Information not available 02/14/2025 Have You Used IV Drugs? No [email or web address] Information not available 02/14/2025 Do You Have Difficulty Walking Or Climbing Stairs? No Information not available 02/14/2025 Sex: Unknown Functional Status Question Answer Note LastModified by Organizat ion Details LastModified Time Do you use any illicit or recreational drugs? No [email or web address] Information not available 02/14/2025 What is your level of alcohol consumption? Moderate [email or web address] Information not available 02/14/2025 Are you currently employed? Yes [email or web address] Information not available 02/14/2025 Are you able to walk independently without assistance or assistive devices? YESWOREST Information not available 02/14/2025 Are you able to care for yourself independently? 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 No [email or web address] Information not available 02/14/2025 What is your exercise level? None [email or web address] Information not available 02/14/2025 Mental Status Question Answer Note LastModified by Organization D etails LastModified Time Do you feel stressed (tense, restless, nervous, or anxious, or unable to sleep at night)? [id number] [email or web address] Information not available 02/14/2025 Family History Relationship Description Onset Age of this Age Resolved Age Notes LastModified by Organization Details LastModified Time Father Heart disease 68 [email or web address] Not available 2024 14:19:44 Maternal Grandmother Cerebrovascu lar accident [email or web address] Not available 07/2024 14:25:50 Medical History Condition [...] ICD10 Code Diagnosis IMO Codes Diagnosis Note [id number] Palmer Rothman MD [facility] [address] [address] 02/14/2025 12:18:29 02/14/2025 13:32:25 [id number] [facility] [address] [address] 02/14/2025 12:26:06 02/14/2025 15:27:30 Amenorrhea [id number] N91.2 98315 +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[employer] [...] 02/14/2025 1 [employer] (POS II) Nakia Menjivar [id number] Nakia Menjivar OBGyn Episode Ob Episode Information Episode Created Date Number of Fetuses Patient Bloodtype Patient rh Status Prepregnancy Weight lbs Domestic Partner Domestic Partner Phone Father Name Processing Assistant Status 03/10/20 25 1 OPEN Fetus Data First Name Last Name Admitted to NICU Weight (g) Sex Living Outcome Pediatric Complications Fetus ID Race Codes Race Delivery Type 51796 Nabil Calculation Initial Nabil Date Initial Exam [...] Weight in lbs Pre/Post Dialysis Refused Weight 135.729948468697 BP Diastolic BP Location Tested BP Systolic [...]
[2025-03-11 20:59] VITALS: O2SAT 100
[2025-03-11 21:00] VITALS: BP 113/67; BP 122/64; PULSE 90; PULSE 98
[2025-03-11 21:01] VITALS: BP 106/66; BP 108/74; PULSE 90; PULSE 92; RESP 18; TEMP 36.7; O2SAT 100
== END 2025-03-11 21:03 | disposition home or self-care (01) ==
PROVIDERS: Physician Assistant; Emergency Provider Registered Nurse
DX: O23.41 Unspecified infection of urinary tract in pregnancy, first trimester (principal); N39.0 Urinary tract infection, site not specified; Z3A.12 12 weeks gestation of pregnancy; O26.891 Other specified pregnancy related conditions, first trimester; E86.0 Dehydration; Z20.822 Contact with and (suspected) exposure to COVID-19
CPT/HCPCS: 36415; 80053; 81001; 85025; 85380; 85610; 85730; 87637; 96360; 99283; A9270; J7030